=== PATIENT | female | born 1970 | race Two or more races ===

== ENCOUNTER 2017-11-19 00:54 | Emergency (ER) | payer MEDICAID ==
[~2017-11-19] VITALS: Ht 157.5 cm; Wt 99.8 kg
[2017-11-19] MEDS ORDERED: LISI-603 PO (01:22)
[2017-11-19] MEDS ORDERED: IRON PO (01:22)
[2017-11-19 01:39] LABS: *BILIRUBIN,URIN NEGATIVE (NEGATIVE); *BLOOD, URINE 1+ (NEGATIVE); *CLARITY,URINE CLEAR (CLEAR); *COLOR,URINE YELLOW (YELLOW); *KETONES,URINE NEGATIVE (NEGATIVE); LEUKOCYTE ESTERASE ,URINE NEGATIVE (NEGATIVE); NITRITE, URINE NEGATIVE (NEGATIVE); PH,URINE 6.5 (5.0-8.0); UGLUCOSE NEGATIVE (NEGATIVE)
[2017-11-19 01:40] LABS: *PROTEIN,URINE 3+ (NEGATIVE)
[2017-11-19 01:54] LABS: BACTERIA,URINE NONE SEEN /HPF (NONE SEEN); WBC,URINE 0-3 /HPF (0-3)
[2017-11-19 01:55] LABS: *URINE HCG, QUAL NEGATIVE (NEGATIVE); MUCUS,URINE FEW /LPF (0-FEW); SQUAMOUS EPITHELIAL CELL,UR MODERATE /HPF (NONE SEEN); URINE AMORPHOUS URATE MODERATE /HPF
[2017-11-19] MEDS ORDERED: KETOROLAC TROMETHAMINE 30 MG INJ IM ONE (02:15)
[2017-11-19] MEDS ORDERED: KETOROLAC TROMETHAMINE 30 MG INJ ONE (02:17)
--- NOTE | 2017-11-19 02:17 | NUR ---
Patient discharged to home in stable conditon. Written and verbal after care instructions given. Patient verbalizes understanding of instructions. Patient able to ambulate unassisted with steady gait. Patient left with all personal belongings.
[2017-11-19 02:20] VITALS: BP 178/95
== END 2017-11-19 02:17 | disposition home or self-care (01) ==
LOC: ER 01:00
DX: M54.5 Low back pain (principal); F17.200 Nicotine dependence, unspecified, uncomplicated; I10 Essential (primary) hypertension; Z88.0 Allergy status to penicillin; Z88.1 Allergy status to other antibiotic agents; Z79.899 Other long term (current) drug therapy
CPT/HCPCS: 81001; 84703; 96372; 99284; A4663; J1885